=== PATIENT | female | born 1975 | race African-American/Black ===

== ENCOUNTER 2024-04-29 15:27 | Emergency (ER) | payer SELFPAY ==
[2024-04-29 15:31] VITALS: BP 131/81; PULSE 84; RESP 18; TEMP 36.8; O2SAT 96
--- NOTE | 2024-04-29 15:45 | DI.RAD_ITS ---
Exam(s) XR HAND RT COMPLETE XR WRIST RT COMPLETE EXAM: XR WRIST RT COMPLETE CLINICAL HISTORY: Injury. TECHNIQUE: 2D digital imaging was performed. Three views of the hand and wrist. COMPARISON: CR XR HAND RT COMPLETE from 04/29/2024 FINDINGS: BONES: No acute fracture is present. Contour deformity at the radial styloid. Adjacent small bony d ensity which may be chronic. Clinical correlation recommended. No additional abnormalities. No bon y destructive lesion is seen. JOINTS: The carpal bones are normally aligned. SOFT TISSUE: Normal. IMPRESSION: Contour deformity of the radial styloid. Small adjacent bony density may be chronic. Clinical corre lation recommended. DATA REPOSITORY: RADIATION DOSE DELIVERED:
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
[2024-04-29] MEDS: Ibuprofen 800 MG TAB PO (15:57)
[2024-04-29] MEDS: oxyCODONE 5 mg/Acetaminophen 325 mg TAB 1 TAB PO (17:39)
[2024-04-29 17:40] VITALS: BP 132/78; PULSE 88; RESP 16; TEMP 36.8; O2SAT 98
== END 2024-04-29 17:40 | disposition home or self-care (01) ==
LOC: ER 16:45
PROVIDERS: Emergency Provider Registered Nurse Emergency
DX: S63.501A Unspecified sprain of right wrist, initial encounter (principal); W50.2XXA Accidental twist by another person, initial encounter; Y93.F9 Activity, other caregiving; Y92.89 Other specified places as the place of occurrence of the external cause; Y99.0 Civilian activity done for income or pay
CPT/HCPCS: 99283; 73110; 73130

== ENCOUNTER 2024-08-18 22:43 | Emergency (ER) | payer SELFPAY ==
--- NOTE | 2024-08-18 22:47 | ED.GENADUL_ITS ---
Discharge Plan Disposition Patient Disposition: Home Condition: Stable Discharge Details Clinical Impression: Acute on chronic pancreatitis Primary Care Provider: None,None ED Provider: Jerome Brady Meds and New Rx's Prescriptions: New Morphine Ir, 4 Tabs/Btl [Msir, 4 Tabs/Btl] 7.5 mg PO Q6H PRN (Reason: Severe Pain (Scale Score 7-10)) Qty: 4 0RF Promethazine, 3 Tabs/Btl [Phenergan, 3 Tabs/Btl] 25 mg PO Q8H PRN (Reason: Nausea And Vomiting) Qty: 3 0RF Continued insulin aspart U-100 [Novolog FlexPen U-100 Insulin] 100 unit/mL (3 mL) insulin pen 1 sliding scale dose subcut USEASDIRECTD insulin glargine [Lantus Solostar U-100 Insulin] 100 unit/mL (3 mL) insulin pen 30 unit subcut QAM Discharge Instructions Additional Instructions: You were seen for abdominal pain/back pain with associated vomiting and diarrhea consistent with previous episodes of acute flares related to your pancreatitis. Your vital signs and laboratory studies overall are reassuring with your lipase being normal currently. Follow clear liquid/bland diet as you have in the past. Take acetaminophen 1 g every 6-8 hours [id number] for the next couple of days. You have been given immediate release morphine which you may take one half tab every 6 hours if needed for severe pain as well as promethazine tablets for recurrent nausea vomiting, may take every 8 hours if needed. Given lack of primary care in the area due to your travel assignment you may need to return to ED for any problems or concerns but should definitely return for fever, persistent vomiting, worsening pain. HPI General Mode of arrival: ambulatory . Date/Time Provider Initiated Documentation: 08/18/24 22:45 . Limitations to Documentation: no limitations . Information obtained by: patient and RN notes reviewed . HPI Narrative: Patient presenting to ED with complaint of abdominal pain, nausea vomiting, diarrhea, back pain which she reports is similar to previous pancreatic flares. She reports a diagnosis of chronic pancreatitis and diabetes of unclear etiology. She is status post cholecystectomy. She has intermittent episodes of symptoms like this. She reports the symptoms initially started 2 days ago. She has been trying to manage at home with clear liquids, bland diet. She also has noticed some dysuria and wonders if she might have a urine infection. Denies any urgency. Denies any fever. She has been on Creon in the past but does not take it currently, just uses insulin both long-acting and sliding scale. 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 Related Data Home Medications ?Medication ?Instructions ?Recorded ?Confirmed insulin aspart U-100 100 unit/mL 1 sliding scale dose subcut 08/18/24 08/18/24 (3 mL) subcutaneous pen (Novolog USEASDIRECTD FlexPen U-100 Insulin aspart) insulin glargine 100 unit/mL (3 30 unit subcut QAM 08/18/24 08/18/24 mL) subcutaneous pen (Lantus Solostar U-100 Insulin) MORPHine IR, 4 tabs/btl [MSIR, 4 7.5 mg PO Q6H PRN Severe Pain 08/19/24 tabs/btl] (Scale Score 7-10) #4 tab-caps PROMETHAZINE, 3 tabs/btl 25 mg PO Q8H PRN Nausea And 08/19/24 [Phenergan, 3 tabs/btl] Vomiting #3 tab-caps Previous Rx's ?Medication ?Instructions ?Recorded MORPHine IR, 4 tabs/btl [MSIR, 4 7.5 mg PO Q6H PRN Severe Pain 08/19/24 tabs/btl] (Scale Score 7-10) #4 tab-caps PROMETHAZINE, 3 tabs/btl 25 mg PO Q8H PRN Nausea And 08/19/24 [Phenergan, 3 tabs/btl] Vomiting #3 tab-caps Allergies Allergy/AdvReac Type Severity Reaction Status Date / Time Penicillins AdvReac Unknown Anaphylaxis Unverified 08/18/24 23:10 haloperidol (From Haldol) AdvReac Psychosis Verified 08/18/24 23:10 ketorolac (From Toradol) AdvReac Nausea Verified 08/18/24 23:10 ondansetron (From Zofran) AdvReac Hives Verified 08/18/24 23:10 prochlorperazine (From AdvReac Psychosis Verified 08/18/24 23:10 Compazine) tramadol AdvReac Nausea Verified 08/18/24 23:10 General ELBA: 4 Review of Systems Narrative: Per HPI Exam Narrative Exam Narrative: Const: WDWN female in NAD. VS per triage. HEENT: NC/AT. Normal facial exam. Neck: Supple. Trachea midline. Lungs: Normal respiratory effort. Lungs are clear. Cor: RRR without murmur. Good radial pulses. GI: Soft/ND/NT. Neuro: A+O x 3. Normal speech, mentation, gait. Cranial nerves II - XII grossly intact. No gross motor or sensory deficit. Ext: No C/C/E. Medical Decision Making Patient presenting to ED with complaint of abdominal and back pain with associated vomiting and diarrhea which she states is a flareup of her chronic pancreatitis. Also has some mild dysuria. She looks well otherwise. Blood pressure little high, no tachycardia no fever. Abdomen is benign. Will hold off on imaging at this point given patient has had multiple episodes similar to this in the past related to pancreatic flareups. She has multiple allergies. IV established and fluids ordered. Laboratory studies sent. IV acetaminophen ordered for pain. Had initially ordered prochlorperazine for nausea and vomiting, patient subsequently reported that this drug causes psychosis for her similar to Haldol. Patient's laboratory studies with a normal white count and hemoglobin. Appears to have some renal insufficiency but there is no baseline for comparison. BUN is 25 and creatinine is 1.2. Her glucose is good at 117. Liver function is actually decent with a normal total bilirubin, slightly elevated AST at 39, normal ALT at 39. Her lipase is also normal at 64. Urinalysis with some trace blood and red blood cells, 5-10 but no evidence of infection. Patient did receive fluids and IV acetaminophen. Feels little better. Discussed with patient what she typically gets for nausea and vomiting. She reports she tolerates Phenergan. We do not have this on formulary for IV/IM anymore. She will be given oral promethazine and reevaluated but at this point vital signs of normalized, she typically reports an elevation in lipase and liver function when she has a flareup which is reassuring given that you are currently normal here. Hopefully, we will be able to discharge home to maintain a clear liquid/bland diet. Patient's nausea improved with Phenergan. She is tolerating clear liquids here. Still complaining of significant back pain. Discussed imaging with the patient. She is comfortable not having imaging done as she has had many CT scans previously and this presentation is typical for her acute flares. She usually manages at home with oral medications. She is agreeable to discharge with immediate release morphine and promethazine tablets. She is aware of the diet that she should maintain. She will use acetaminophen and only take the morphine for severe pain. 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 She can return to ED for any problems or concerns but especially for fever, persistent vomiting, worsening abdominal pain. Lab Data Lab results reviewed: Yes I reviewed the patient's lab results. Lab results narrative: see MDM PFS All Active Problems (Updated 08/19/24 @ 02:43 by Jerome Brady MD) Acute on chronic pancreatitis (Acute) Medical History Diabetes mellitus Pancreatitis Surgical History S/P partial hysterectomy S/P cholecystectomy Social History Smoking/Tobacco Use Status: Never Smoking risk assessment performed?: Yes Alcohol Intake: current Substance use type: does not use Housing: apartment Do you feel safe at home: Yes Do you feel safe in your relationship?: Yes
[2024-08-18 22:50] VITALS: BP 178/93; PULSE 82; RESP 16; TEMP 36.5; O2SAT 100
[2024-08-18 23:15] LABS: Bilirubin Negative (Negative); Blood Trace-lysed (Negative); Clarity Clear (Clear); Glucose Negative (Negative); Ketones Negative (Negative); Leukocyte Esterase Negative (Negative); Nitrite Negative (Negative); Specific Gravity >= 1.030 (1.005-1.025); Urobilinogen 0.2 mg/dL (Up to 0.2)
[2024-08-18 23:22] LABS: Bacteria Few HPF (Negative); C & S Indicated? No; Casts Negative LPF (Negative); Crystals Few Amorphous HPF (Negative); Epithelial Cells Few HPF (Negative); Mucus Moderate (Negative)
[2024-08-18 23:23] LABS: Abs Immature Grans 0.02 10^3/uL (0.0-0.06); Absolute Basophil Count 0.02 10^3/uL (0.0-0.2); Absolute Eosinophil Count 0.17 10^3/uL (0.0-0.7); Absolute Lymphocyte Count 2.41 10^3/uL (1.2-3.4); Absolute Monocyte Count 0.66 10^3/uL (0.1-0.8); Absolute Neutrophil Count 2.71 10^3/uL (1.2-6.7); Basophils % 0.3 %; Eosinophils % 2.8 %; HCT 45.7 % (36.0-46.0); HGB 14.3 g/dL (11.2-15.7); Immature Grans % 0.3 %; Lymphocytes % 40.2 %; MCH 28.4 pg (27.0-33.0); MCHC 31.3 % (32.0-36.0); MCV 91 fL (80-95); MPV 9.7 fL (8.0-11.0); Neutrophils % 45.4 %; Platelet Count 203 10^3/uL (130-400); RBC 5.04 10^6/uL (3.93-5.22); RDW 14.2 % (11.7-14.6); RDW-SD 47.4 fL; WBC 5.99 10^3/uL (4.4-10.8)
[2024-08-18] MEDS: Normal Saline 1,000 ML 1000 ML IV (23:25)
[2024-08-18] MEDS: ACETAMINOPHEN 1,000 MG/100 ML BAG 400 MG IVPB (23:26)
[2024-08-18 23:38] LABS: ALT 39 U/L (14-59); AST 39 U/L (15-37); Albumin 3.3 g/dL (3.4-5.0); Alkaline Phosphatase 244 U/L (46-116); Anion Gap 4.4 mmol/L (3-11); BUN 25 mg/dL (7-18); Bilirubin, Total 0.31 mg/dL (0.2-1.0); CO2 29.6 mmol/L (21.0-32.0); CREATININE 1.2 mg/dL (0.55-1.02); Calcium 10.1 mg/dL (8.5-10.1); Chloride 107 mmol/L (98-107); Estimated GFR 55.49 (mL/min/1.73m2); Glucose 117 mg/dL (74-106); Lipase 64 U/L (<78); Magnesium 2.3 mg/dL (1.8-2.4); Potassium 4.2 mmol/L (3.5-5.1); Sodium 141 mmol/L (136-145); Total Protein 9.5 g/dL (6.4-8.2)
[2024-08-18 23:45] VITALS: BP 160/90; PULSE 72; RESP 16; O2SAT 99
[2024-08-19 00:33] VITALS: BP 135/90; PULSE 69; RESP 16; O2SAT 99
[2024-08-19] MEDS: Promethazine 25 MG TAB PO (00:47)
[2024-08-19 01:39] VITALS: BP 138/88; PULSE 72; RESP 16; O2SAT 99
--- NOTE | 2024-08-19 02:29 | NUR.NOTE ---
Sipping Water for last hour, holding down fluids, FPJ
[2024-08-19] MEDS: MORPHine IR 15 MG TAB, 4 TABS/BTL PO (02:47)
[2024-08-19 03:00] VITALS: BP 148/90; PULSE 75; RESP 16; O2SAT 100
== END 2024-08-19 03:01 | disposition home or self-care (01) ==
LOC: ER 08-19 03:12
PROVIDERS: Emergency Provider Emergency Medicine
DX: K86.1 Other chronic pancreatitis (principal); K85.90 Acute pancreatitis without necrosis or infection, unspecified
CPT/HCPCS: 36415; 80053; 81025; 83690; 96361; 96374; 99284; 81003; 81015; 83735; 85025; J0131

== ENCOUNTER 2024-09-07 11:04 | Emergency (ER) | payer SELFPAY ==
[2024-09-07 11:14] VITALS: BP 168/100; PULSE 75; RESP 18; TEMP 36.6; O2SAT 97
--- NOTE | 2024-09-07 11:59 | ED.GENADUL_ITS ---
Discharge Plan Disposition Patient Disposition: Home Condition: Stable Discharge Details Clinical Impression: Acute pain of left ear, Back pain Primary Care Provider: None,None ED Provider: Laura Navarro Home Meds and New Rx's Prescriptions: New clindamycin HCl 150 mg capsule 450 mg PO TID 7 Days Qty: 63 0RF No Action insulin aspart U-100 [Novolog FlexPen U-100 Insulin] 100 unit/mL (3 mL) insulin pen 1 sliding scale dose subcut USEASDIRECTD insulin glargine [Lantus Solostar U-100 Insulin] 100 unit/mL (3 mL) insulin pen 30 unit subcut QAM Morphine Ir, 4 Tabs/Btl [Msir, 4 Tabs/Btl] 7.5 mg PO Q6H PRN (Reason: Severe Pain (Scale Score 7-10)) Qty: 4 0RF Promethazine, 3 Tabs/Btl [Phenergan, 3 Tabs/Btl] 25 mg PO Q8H PRN (Reason: Nausea And Vomiting) Qty: 3 0RF Discharge Instructions Instructions: Ear Infection ED, Upper Back Pain ED Additional Instructions: Please continue to irrigate your left ear, you do have earwax impacted, you can get [id number] earwax softening medication. Please take the antibiotic with yogurt or a probiotic as directed. Please take the pain medication only for moderate to severe pain. This will make you sleepy do not drive or operate heavy machinery while taking this medication. Please take Tylenol or Ibuprofen with food every 4-6 hours as needed for pain and swelling. Follow up with primary care provider in 3-5 days. Return to ED sooner if any worsening or concerns. Stand Alone Forms: Work Release Referrals: Primary Care Provider [Outside] - 5 days HPI General Mode of arrival: ambulatory . Date/Time Provider Initiated Documentation: 09/07/24 11:35 . Limitations to Documentation: no limitations . Information obtained by: patient, RN notes reviewed and old records reviewed . HPI Narrative: 49-year-old female presents to the ER with a chief complaint of left ear pain radiating to her jaw started 2 weeks ago. She reports decreased hearing and feels clogged. On exam it is cerumen impacted I am unable to visualize the tympanic membrane. Posterior oropharynx within normal limits. She also is complaining of back pain and feels like my pancreatitis is starting to flareup does have a history of diabetes mellitus and pancreatitis surgical history includes hysterectomy cholecystectomy. She has not taken any medications today prior to arrival. Related Data Home Medications ?Medication ?Instructions ?Recorded ?Confirmed insulin aspart U-100 100 unit/mL 1 sliding scale dose subcut 08/18/24 09/07/24 (3 mL) subcutaneous pen (Novolog USEASDIRECTD FlexPen U-100 Insulin aspart) insulin glargine 100 unit/mL (3 30 unit subcut QAM 08/18/24 09/07/24 mL) subcutaneous pen (Lantus Solostar U-100 Insulin) MORPHine IR, 4 tabs/btl [MSIR, 4 7.5 mg PO Q6H PRN Severe Pain 08/19/24 09/07/24 tabs/btl] (Scale Score 7-10) #4 tab-caps PROMETHAZINE, 3 tabs/btl 25 mg PO Q8H PRN Nausea And 08/19/24 09/07/24 [Phenergan, 3 tabs/btl] Vomiting #3 tab-caps clindamycin HCl 150 mg capsule 450 mg (3 x 150 mg) PO TID 7 days 09/07/24 #63 caps Previous Rx's ?Medication ?Instructions ?Recorded MORPHine IR, 4 tabs/btl [MSIR, 4 7.5 mg PO Q6H PRN Severe Pain 08/19/24 tabs/btl] (Scale Score 7-10) #4 tab-caps PROMETHAZINE, 3 tabs/btl 25 mg PO Q8H PRN Nausea And 08/19/24 [Phenergan, 3 tabs/btl] Vomiting #3 tab-caps clindamycin HCl 150 mg capsule 450 mg (3 x 150 mg) PO TID 7 days 09/07/24 #63 caps Allergies Allergy/AdvReac Type Severity Reaction Status Date / Time Penicillins AdvReac Unknown Anaphylaxis Unverified 09/07/24 11:14 haloperidol (From Haldol) AdvReac Psychosis Verified 09/07/24 11:14 ketorolac (From Toradol) AdvReac Nausea Verified 09/07/24 11:14 ondansetron (From Zofran) AdvReac Hives Verified 09/07/24 11:14 prochlorperazine (From AdvReac Psychosis Verified 09/07/24 11:14 Compazine) tramadol AdvReac Nausea Verified 09/07/24 11:14 General Stated Complaint: EarProblem ELBA: 4 Review of Systems All systems reviewed & are unremarkable except as noted in HPI and below ENT Ears, Nose, Mouth, and Throat: Reports as per HPI, Reports otalgia, Reports facial pain and Reports sore throat Musculoskeletal Musculoskeletal: Reports back pain Exam Narrative Exam Narrative: Constitutional: Alert and oriented x3. Appears stated age. Normal body habitus. Head: Normocephalic, no trauma. Eyes: Pupils PERRL, Red reflex noted, EOM's intact. Eyelids symmetrical without lesions, discharge, or swelling. ENT: Right TM within normal limits, unable to visualize the left TM due to cerumen impaction external ear normal to inspection, no mastoid TTP, swelling, or erythema, Nasal turbinates WNL, no nasal discharge. Normal dentition, Posterior pharynx WNL, no exudate. Chest: RRR, Normal S1, S2, distal pulses intact. Resp: Lungs clear to auscultation bilaterally, no wheezes, rales, or rhonchi. Abdomen: Soft, non-distended, Normoactive bowel sounds all 4 quads. Musculoskeletal: Normal gait, Moves all 4 extremities without difficulty. Tender with palpation mid T-spine. No crepitus or step-off. Skin: No suspicious rashes or lesions. Capillary refill less than 2 sec. Neurologic: Cranial nerves II-XII intact. Alert and oriented x 3. Motor: No deficits noted. Sensory: Intact bilaterally all 4 extremities. Hematologic/Lymphatic: No ecchymosis, no lymphadenopathy. Course Vital Signs Vital signs: Vital Signs Temperature 36.6 C 09/07/24 11:14 Pulse 75 09/07/24 11:14 Respiratory Rate 18 09/07/24 11:14 Blood Pressure 168/100 H 09/07/24 11:14 Pulse Oximetry 97 09/07/24 11:14 Temperature 36.6 C 09/07/24 11:14 Temperature Source Oral 09/07/24 11:14 Pulse 75 09/07/24 11:14 Respiratory Rate 18 09/07/24 11:14 Blood Pressure 168/100 H 09/07/24 11:14 Pulse Oximetry 97 09/07/24 11:14 Pain Level 8 09/07/24 11:53 Medical Decision Making 49-year-old female presents to the ER with a chief complaint of left ear pain, headache nausea. She does have a past medical history of pancreatitis and diabetes she reports that she is having difficulty hearing of her left ear. On exam it is cerumen impacted unable to visualize tympanic membrane, right TM within normal limits. Will give Reglan, gram of Tylenol and ear irrigation. Patient did not take any medications prior to arrival. Will give clindamycin 450 mg here due to penicillin allergy, and morphine tablet number for her to go for pain. 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 This text was generated using [employer] dictation system, please disregard any oddities of phrase or misspellings. Medical Records Medical records reviewed: Yes I reviewed the patient's medical records. Quality:SDOH Health Related Social Needs: No Data to Display PFSH All Active Problems (Updated 09/07/24 @ 12:39 by Laura Navarro NP) Back pain (Acute) Acute pain of left ear (Acute) Acute on chronic pancreatitis (Acute) Medical History Diabetes mellitus Pancreatitis Surgical History S/P partial hysterectomy S/P cholecystectomy Social History Smoking/Tobacco Use Status: Never Smoking risk assessment performed?: Yes Alcohol Intake: never Substance use type: does not use Housing: apartment Do you feel safe at home: Yes Do you feel safe in your relationship?: Yes
[2024-09-07] MEDS: Acetaminophen 500 MG TAB 1000 MG PO (12:06)
[2024-09-07] MEDS: Hydrogen Peroxide 3% 480 ML BTL (12:07)
[2024-09-07] MEDS: Clindamycin 150 MG CAP 450 MG PO (13:10)
[2024-09-07] MEDS: MORPHine IR 15 MG TAB, 4 TABS/BTL PO (13:10)
== END 2024-09-07 13:18 | disposition home or self-care (01) ==
PROVIDERS: Emergency Provider Registered Nurse Emergency
DX: H92.02 Otalgia, left ear (principal); H61.22 Impacted cerumen, left ear; M54.50 Low back pain, unspecified; Z79.4 Long term (current) use of insulin
CPT/HCPCS: 99283

== ENCOUNTER 2024-09-20 08:53 | Emergency (ER) | payer SELFPAY ==
[2024-09-20] MEDS: Promethazine 25 MG TAB PO (08:55)
[2024-09-20 09:00] VITALS: BP 163/100; PULSE 75; RESP 20; TEMP 36.9; O2SAT 98
[2024-09-20 09:05] VITALS: PULSE 75; RESP 18; TEMP 36.9; O2SAT 98
--- NOTE | 2024-09-20 09:20 | ED.GENADUL_ITS ---
Discharge Plan Disposition Patient Disposition: Home Condition: Stable Discharge Details Clinical Impression: Impacted cerumen of left ear, Nausea vomiting and diarrhea Primary Care Provider: None,None ED Provider: Laura Navarro Home Meds and New Rx's Prescriptions: New promethazine 25 mg tablet 25 mg PO QHS PRN (Reason: nausea and vomiting) Qty: 7 0RF Rx Instructions: Take one tablet at bedtime as needed for nausea and vomiting Continued insulin aspart U-100 [Novolog FlexPen U-100 Insulin] 100 unit/mL (3 mL) insulin pen 1 sliding scale dose subcut USEASDIRECTD insulin glargine [Lantus Solostar U-100 Insulin] 100 unit/mL (3 mL) insulin pen 30 unit subcut QAM gabapentin 600 mg tablet 300 mg PO TID PRN Patient Comments: TAKE ONE Tablet by mouth THREE TIMES DAILY NEEDED (DME) True Metrix Glucose Test Strip Strip MISCELLANEOUS Patient Comments: Use 1 test strip to test blood glucose THREE TIMES DAILY (DME) pen needle, diabetic [BD Ultra-Fine Micro Pen Needle] 32 gauge x 1/4 needle MISCELLANEOUS Patient Comments: USE ONE pen needle under the skin FOUR TIMES DAILY DIRECTED Discharge Instructions Instructions: Ear Wax Impaction ED, Nausea and Vomiting, Adult ED Additional Instructions: Negative COVID flu and RSV swab. Labs are largely at her baseline. Please use the Debrox eardrops as directed up to 3 times daily for the next couple of days to soften the earwax and to aid in removal. Please use these eardrops and then attempt irrigation. If no relief in the next couple of days please follow-up with your nose and throat. Please take Tylenol or Ibuprofen with food every 4-6 hours as needed for pain and swelling. Please take the nausea medication as directed. Follow up with primary care provider in 3-5 days. Return to ED sooner if any worsening or concerns. Stand Alone Forms: Work Release Referrals: Primary Care Provider [Outside] - 5 days Bowen Santos MD [ [facility] STAFF PHYSICIAN] - 5 days (If no improvement) Discharge Data Discharge Date/Time-TO BE ENTERED AT DEPARTURE: 09/20/24 10:45 HPI General Mode of arrival: ambulatory . Date/Time Provider Initiated Documentation: 09/20/24 08:56 . Limitations to Documentation: no limitations . Information obtained by: patient, RN notes reviewed and old records reviewed . HPI Narrative: 49-year-old female presents to the ER with a chief complaint of ear pain, mornin g nausea vomiting diarrhea and left upper quadrant abdominal pain since . Patient was seen here approximately a week ago and given clindamycin for a presumed ear infection and some pain medication at that time. Patient reports that she took all the antibiotic as directed and her ears are still hurting. She is complaining of right ear pain. Right tympanic membrane is within normal limits no erythema or bulging, unable to visualize left tympanic membrane due to cerumen impaction. 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 She is afebrile nontachycardic upon arrival. Related Data Home Medications ?Medication ?Instructions ?Recorded ?Confirmed insulin aspart U-100 100 unit/mL 1 sliding scale dose subcut 08/18/24 09/20/24 (3 mL) subcutaneous pen (Novolog USEASDIRECTD FlexPen U-100 Insulin aspart) insulin glargine 100 unit/mL (3 30 unit subcut QAM 08/18/24 09/20/24 mL) subcutaneous pen (Lantus Solostar U-100 Insulin) blood sugar diagnostic (True 09/20/24 09/20/24 Metrix Glucose Test Strip) gabapentin 600 mg tablet 300 mg PO TID PRN 09/20/24 09/20/24 pen needle, diabetic 32 gauge x 09/20/24 09/20/24/ (BD Ultra-Fine Micro Pen Needle) promethazine 25 mg tablet 25 mg PO QHS PRN nausea and 09/20/24 vomiting #7 tabs Previous Rx's ?Medication ?Instructions ?Recorded promethazine 25 mg tablet 25 mg PO QHS PRN nausea and 09/20/24 vomiting #7 tabs Allergies Allergy/AdvReac Type Severity Reaction Status Date / Time Penicillins AdvReac Unknown Anaphylaxis Unverified 09/20/24 08:58 haloperidol (From Haldol) AdvReac Psychosis Verified 09/20/24 08:58 ketorolac (From Toradol) AdvReac Nausea Verified 09/20/24 08:58 ondansetron (From Zofran) AdvReac Hives Verified 09/20/24 08:58 prochlorperazine (From AdvReac Psychosis Verified 09/20/24 08:58 Compazine) tramadol AdvReac Nausea Verified 09/20/24 08:58 General Stated Complaint: Nausea/Vomit/Diar ELBA: 4 Review of Systems All systems reviewed & are unremarkable except as noted in HPI and below ENT Ears, Nose, Mouth, and Throat: Reports as per HPI and Reports otalgia Gastrointestinal Gastrointestinal: Reports abdominal pain, Reports diarrhea, Reports nausea and Reports vomiting Exam Narrative Exam Narrative: Constitutional: Alert and oriented x3. Appears stated age. Normal body habitus. Head: Normocephalic, no trauma. Eyes: Pupils PERRL, Red reflex noted, EOM's intact. Eyelids symmetrical without lesions, discharge, or swelling. ENT: Unable to visualize left tympanic membrane due to earwax impaction, right TM within normal limits external ear normal to inspection, no mastoid TTP, swelling, or erythema, Nasal turbinates WNL, no nasal discharge. Normal dentition, Posterior pharynx WNL, no exudate. Chest: RRR, Normal S1, S2, distal pulses intact. Resp: Lungs clear to auscultation bilaterally, no wheezes, rales, or rhonchi. Abdomen: Soft, non-distended, Normoactive bowel sounds all 4 quads. Tenderness palpation left upper quadrant. Musculoskeletal: Normal gait, Moves all 4 extremities without difficulty. Skin: No suspicious rashes or lesions. Capillary refill less than 2 sec. Neurologic: Cranial nerves II-XII intact. Alert and oriented x 3. Motor: No deficits noted. Sensory: Intact bilaterally all 4 extremities. Hematologic/Lymphatic: No ecchymosis, no lymphadenopathy. Course Vital Signs Vital signs: Vital Signs Temperature 36.9 C 09/20/24 09:00 Pulse 75 09/20/24 09:00 Respiratory Rate 20 09/20/24 09:00 Blood Pressure 163/100 H 09/20/24 09:00 Pulse Oximetry 98 09/20/24 09:00 Temperature 36.9 C 09/20/24 09:05 Temperature Source Oral 09/20/24 09:05 Pulse 75 09/20/24 09:05 Respiratory Rate 18 09/20/24 09:05 Blood Pressure 163/100 H 09/20/24 09:00 Blood Pressure Position Sitting 09/20/24 09:00 Pulse Oximetry 98 09/20/24 09:05 Oxygen Delivery Method Room Air 09/20/24 09:05 Oxygen Flow Rate 0 09/20/24 09:00 Pain Level 8 09/20/24 09:05 Comment no meds r/t n/v/d 09/20/24 09:05 Medical Decision Making 49-year-old female presents to the ER with a chief complaint of ear pain, mornin g nausea vomiting diarrhea and left upper quadrant abdominal pain since . Patient was seen here approximately a week ago and given clindamycin for a presumed ear infection and some pain medication at that time. Patient reports that she took all the antibiotic as directed and her ears are still hurting. She is complaining of right ear pain. Right tympanic membrane is within normal limits no erythema or bulging, unable to visualize left tympanic membrane due to cerumen impaction. 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 She is afebrile nontachycardic upon arrival. Workup ordered including CBC CMP lipase, magnesium, urinalysis and Fluvid swab. Ear irrigation ordered. Will give Phenergan p.o. CT Negative COVID flu RSV swab, CBC shows no leukocytosis, CMP shows BUN 34 creatinine 1.2 GFR 55 which is at patient's baseline, AST 57 ALT 65 alk phos is 366 albumin 2.8 lipase 47. Will give Phenergan tablets to go, Debrox eardrops, and Tylenol. Will give a ear nose and throat referral and a work note. This text was generated using [employer] dictation system, please disregard any oddities of phrase or misspellings. Medical Records Medical records reviewed: Yes I reviewed the patient's medical records. Lab Data Lab results reviewed: Yes I reviewed the patient's lab results. Labs: Laboratory Tests Range/Units 09/20/24 09/20/24 09:26 09:32 WBC (4.4-10.8) 10^3/uL 3.93 L RBC (3.93-5.22) 10^6/uL 4.55 Hgb (11.2-15.7) g/dL 12.8 Hct (36.0-46.0) % 40.9 MCV (80-95) fL 90 MCH (27.0-33.0) pg 28.1 MCHC (32.0-36.0) % 31.3 L RDW (11.7-14.6) % 14.5 Plt Count (130-400) 10^3/uL 185 MPV (8.0-11.0) fL 10.4 Immature Gran % % 0.5 Neutrophils % % 37.7 Lymphocytes % % 40.2 Monocytes % % 17.8 Eosinophils % % 3.3 Basophils % % 0.5 Nucleated RBC % (0.0-0.3) % 0.0 Absolute Neutrophils (1.2-6.7) 10^3/uL 1.48 Absolute Lymphocytes (1.2-3.4) 10^3/uL 1.58 Absolute Monocytes (0.1-0.8) 10^3/uL 0.70 Absolute Eosinophils (0.0-0.7) 10^3/uL 0.13 Absolute Basophils (0.0-0.2) 10^3/uL 0.02 Sodium (136-145) mmol/L 137 Potassium (3.5-5.1) mmol/L 3.9 Chloride (98-107) mmol/L 104 Carbon Dioxide (21.0-32.0) mmol/L 25.5 Anion Gap (3-11) mmol/L 7.5 BUN (7-18) mg/dL 34 H Creatinine (0.55-1.02) mg/dL 1.2 H Est GFR (CKD-EPI 2020) (mL/min/1.73m2) 55.49 Glucose (74-106) mg/dL 146 H Calcium (8.5-10.1) mg/dL 10.0 Magnesium (1.8-2.4) mg/dL 1.9 Total Bilirubin (0.2-1.0) mg/dL 0.42 AST (15-37) U/L 57 H ALT (14-59) U/L 65 H Alkaline Phosphatase (46-116) U/L 366 H Total Protein (6.4-8.2) g/dL 8.6 H Albumin (3.4-5.0) g/dL 2.8 L Lipase (<78) U/L 47 COVID-19 Source Nasopharynx SARS-CoV-2 (PCR) (Negative) Negative Influenza Type A (PCR) (Negative) Negative Influenza Type B (PCR) (Negative) Negative RSV (PCR) (Negative) Negative Quality:[facility] Related Social Needs: No Data to Display PFSH All Active Problems (Updated 09/20/24 @ 10:30 by Laura Navarro NP) Nausea vomiting and diarrhea (Acute) Impacted cerumen of left ear (Acute) Back pain (Acute) Acute pain of left ear (Acute) Medical History Diabetes mellitus Pancreatitis Surgical History S/P partial hysterectomy S/P cholecystectomy Social History Smoking/Tobacco Use Status: Never Smoking risk assessment performed?: Yes Alcohol Intake: never Drug use: Never Substance use type: does not use Housing: apartment Do you feel safe at home: Yes Do you feel safe in your relationship?: Yes
[2024-09-20 10:00] LABS: Abs Immature Grans 0.02 10^3/uL (0.0-0.06); Absolute Basophil Count 0.02 10^3/uL (0.0-0.2); Absolute Eosinophil Count 0.13 10^3/uL (0.0-0.7); Absolute Lymphocyte Count 1.58 10^3/uL (1.2-3.4); Absolute Neutrophil Count 1.48 10^3/uL (1.2-6.7); Basophils % 0.5 %; Eosinophils % 3.3 %; HCT 40.9 % (36.0-46.0); HGB 12.8 g/dL (11.2-15.7); Immature Grans % 0.5 %; Lymphocytes % 40.2 %; MCH 28.1 pg (27.0-33.0); MCHC 31.3 % (32.0-36.0); MCV 90 fL (80-95); MPV 10.4 fL (8.0-11.0); Monocytes % 17.8 %; Neutrophils % 37.7 %; Platelet Count 185 10^3/uL (130-400); RBC 4.55 10^6/uL (3.93-5.22); RDW 14.5 % (11.7-14.6); RDW-SD 47.6 fL; WBC 3.93 10^3/uL (4.4-10.8)
[2024-09-20 10:04] LABS: Lipase 47 U/L (<78)
[2024-09-20 10:10] LABS: ALT 65 U/L (14-59); AST 57 U/L (15-37); Albumin 2.8 g/dL (3.4-5.0); Alkaline Phosphatase 366 U/L (46-116); Anion Gap 7.5 mmol/L (3-11); BUN 34 mg/dL (7-18); Bilirubin, Total 0.42 mg/dL (0.2-1.0); CO2 25.5 mmol/L (21.0-32.0); CREATININE 1.2 mg/dL (0.55-1.02); Chloride 104 mmol/L (98-107); Estimated GFR 55.49 (mL/min/1.73m2); Glucose 146 mg/dL (74-106); Magnesium 1.9 mg/dL (1.8-2.4); Potassium 3.9 mmol/L (3.5-5.1); Sodium 137 mmol/L (136-145); Total Protein 8.6 g/dL (6.4-8.2)
[2024-09-20 10:19] LABS: COVID-19 PCR Negative (Negative); Influenza A PCR Negative (Negative); Influenza B PCR Negative (Negative); RSV PCR Negative (Negative)
[2024-09-20 10:20] LABS: Source Nasopharynx
[2024-09-20] MEDS: Carbamide Peroxide 15 ML BTL AU (10:39)
[2024-09-20] MEDS: Acetaminophen 325 MG TAB 650 MG PO (10:39)
[2024-09-20 10:44] VITALS: BP 155/109; PULSE 72; RESP 18; TEMP 36.9; O2SAT 97
== END 2024-09-20 10:45 | disposition home or self-care (01) ==
PROVIDERS: Emergency Provider Registered Nurse Emergency
DX: H61.22 Impacted cerumen, left ear (principal); R11.2 Nausea with vomiting, unspecified; R19.7 Diarrhea, unspecified; E11.9 Type 2 diabetes mellitus without complications; Z79.4 Long term (current) use of insulin
CPT/HCPCS: 36415; 80053; 83690; 87637; 99283; 83735; 85025